=== PATIENT | female | born 1950 | race Caucasian/White ===

== ENCOUNTER 2017-01-01 09:18 | Inpatient (IN) | payer MEDICARE, BC ==
[~2017-01-01] VITALS: Ht 162.6 cm; Wt 60.4 kg
[2017-01-01] MEDS ORDERED: FAMOTIDINE 20 MG/2 ML IVP ONE (09:30)
[2017-01-01] MEDS ORDERED: SODIUM CHLORIDE 0.9% 1,000ML IVBOLUS ONE (09:30)
[2017-01-01] MEDS ORDERED: MAALOX/HYOSCYAMINE/LIDOCAINE 45 ML BTL PO ONE (09:30)
[2017-01-01] MEDS ORDERED: SODIUM CHLORIDE FLUSH 10ML SYR IVF ONE (09:30)
[2017-01-01] MEDS ORDERED: FAMOTIDINE 20 MG/2 ML ONE (09:42)
[2017-01-01] MEDS ORDERED: ONDANSETRON 2MG/ML, 2ML ONE ×2 (09:42→10:56)
[2017-01-01] MEDS ORDERED: MAALOX/HYOSCYAMINE/LIDOCAINE 45 ML BTL ONE (09:42)
[2017-01-01 09:53] LABS: HEMATOCRIT 47.5 % (34.6-47.8); HEMOGLOBIN 15.5 g/dL (11.7-16.4); WHITE BLOOD COUNT 9.1 x10^3/uL (3.4-10)
[2017-01-01] MEDS ORDERED: ONDANSETRON 2MG/ML, 2ML IVPush ONE ×2 (10:00→11:00)
[2017-01-01 10:06] LABS: ASPARTATE AMINO TRANSFERASE 20 U/L (15-37); BLOOD UREA NITROGEN 5 mg/dL (7-18)
[2017-01-01 10:09] LABS: IS PT STATUS REG ER OR PRE ER? YES
[2017-01-01] MEDS ORDERED: ALPR-475 PO (10:14)
[2017-01-01] MEDS ORDERED: LEVO25TA2 PO (10:14)
[2017-01-01] MEDS ORDERED: AMIT100T PO (10:14)
[2017-01-01] MEDS ORDERED: OXYC10TA6 PO (10:14)
[2017-01-01] MEDS ORDERED: LUBI24CA7 PO (10:14)
[2017-01-01] MEDS ORDERED: ZOLP-413 PO (10:14)
[2017-01-01] MEDS ORDERED: TAPE150T PO (10:15)
[2017-01-01] MEDS ORDERED: MORPHINE SULFATE 4 MG/ML, 1ML ONE (11:03)
[2017-01-01] MEDS ORDERED: morphine SULFATE 10 MG/ML, 1ML IVPush ONE (11:30)
[2017-01-01] MEDS ORDERED: METOCLOPRAMIDE 5 MG/ML, 2ML IVPush ONE (12:00)
[2017-01-01] MEDS ORDERED: METOCLOPRAMIDE 5 MG/ML, 2ML ONE (12:03)
[2017-01-01] MEDS ORDERED: ENOXAPARIN 40 MG/0.4 ML SQ SCH (13:30)
[2017-01-01] MEDS ORDERED: DOCUSATE 100 MG CAPSULE PO PRN (13:30)
[2017-01-01] MEDS ORDERED: ENALAPRILAT 1.25 MG/ML, 2ML IVPush PRN (13:30)
[2017-01-01] MEDS ORDERED: METOCLOPRAMIDE 5 MG/ML, 2ML IVPush PRN (13:30)
[2017-01-01] MEDS ORDERED: POLYETHYLENE GLYCOL 17 GM PACKET PO PRN (13:30)
[2017-01-01] MEDS ORDERED: LABETALOL 5MG/ML, 20ML IVPush PRN (13:30)
[2017-01-01] MEDS ORDERED: HYDROmorphone 2 MG/ML, 1ML IVPush PRN (13:30)
[2017-01-01] MEDS ORDERED: NICOTINE 7 MG/24 HR PATCH.TD24 TD SCH (13:30)
[2017-01-01 14:14] VITALS: BP 149/85
[2017-01-01] MEDS: morphine SULFATE 10 MG/ML, 1ML IVPush PRN ×2 (15:08→18:48)
[2017-01-01] MEDS: SODIUM CHLORIDE 0.9% 1,000 ML IV SCH (16:46)
[2017-01-01 16:58] LABS: IS PT STATUS REG ER OR PRE ER? NO
[2017-01-01 18:50] VITALS: BP 131/86
[2017-01-01] MEDS ORDERED: NICOTINE 14MG/24 HR PATCH.TD24 TD SCH (20:30)
[2017-01-01 21:12] VITALS: BP 154/97
[2017-01-01] MEDS: OXYcodone/APAP 5/325MG TABLET PO PRN (21:21)
[2017-01-01 23:03] LABS: IS PT STATUS REG ER OR PRE ER? NO
[2017-01-02] MEDS: morphine SULFATE 10 MG/ML, 1ML IVPush PRN (00:12)
[2017-01-02 01:08] VITALS: BP 113/75
[2017-01-02] MEDS: SODIUM CHLORIDE 0.9% 1,000 ML IV SCH ×2 (03:18→11:19)
[2017-01-02] MEDS ORDERED: PROCHLORPERAZINE 5 MG/ML, 2ML IVPush ONE (04:30)
[2017-01-02] MEDS ORDERED: DIPHENHYDRAMINE 50 MG/ML, 1ML IVPush ONE (04:30)
[2017-01-02] MEDS ORDERED: LEVOTHYROXINE 25 MCG TABLET PO SCH (06:00)
[2017-01-02 06:12] LABS: BLOOD UREA NITROGEN 2 mg/dL (7-18)
[2017-01-02] MEDS ORDERED: KETOROLAC 30 MG/1 ML IVPush ONE (08:00)
[2017-01-02 08:27] VITALS: BP 161/98
[2017-01-02] MEDS: OXYcodone/APAP 5/325MG TABLET PO PRN (09:58)
[2017-01-02] MEDS ORDERED: NICO1PAT13 TD (10:09)
== END 2017-01-02 12:07 | disposition home or self-care (01) | DRG 372 ==
LOC: ED 12:03 → EDIP 12:04 → ED 12:15 → 5SO 14:04 → DCLOUNGE 01-02 11:50
PROVIDERS: ADMIT Internal Medicine; ATTEND Internal Medicine
DX: A04.9 Bacterial intestinal infection, unspecified (principal); I24.9 Acute ischemic heart disease, unspecified; I45.81 Long QT syndrome; E03.9 Hypothyroidism, unspecified; K52.9 Noninfective gastroenteritis and colitis, unspecified; R33.9 Retention of urine, unspecified; R07.9 Chest pain, unspecified; R11.2 Nausea with vomiting, unspecified; F17.200 Nicotine dependence, unspecified, uncomplicated; K59.09 Other constipation; G89.29 Other chronic pain; T42.4X5A Adverse effect of benzodiazepines, initial encounter; M81.0 Age-related osteoporosis without current pathological fracture; F41.9 Anxiety disorder, unspecified; Z66 Do not resuscitate; Y92.89 Other specified places as the place of occurrence of the external cause; Z90.49 Acquired absence of other specified parts of digestive tract; Z90.89 Acquired absence of other organs; Z88.5 Allergy status to narcotic agent
CPT/HCPCS: 36415; 51702; 74022; 76700; 80048; 80053; 81003; 83690; 84484; 85025; 86677; 93005; 96361; 96374; 96375; J1650; J1885; J2405; J0780; J1200; J2270; J2765; J7030; S0028